=== PATIENT | male | born 1950 | race Caucasian/White ===

== ENCOUNTER 2022-02-02 15:18 | Observation (INO) | payer OTHER ==
[2022-02-02] MEDS ORDERED: METOCLOPRAMIDE HCL INJECTION 10 MG/2 ML VIAL IVPB ONE (16:26)
[2022-02-02] MEDS ORDERED: LACTATED RINGERS SOLUTION 1000 ML INFUS.BAG IV ONE (16:26)
[2022-02-02] MEDS ORDERED: ACETAMINOPHEN 1000 MG/100 ML BAG IVPB ONE (16:26)
[2022-02-02] MEDS ORDERED: ACETAMINOPHEN INJECTION 100 ML IVPB ONE (16:30)
[2022-02-02] MEDS ORDERED: METOCLOPRAMIDE HCL INJECTION 10 MG/2 ML VIAL ONE (16:30)
[2022-02-02 17:01] LABS: BASO % 0.9 % (0-2.0); EOS % 1.1 % (0-4.5); HEMATOCRIT 44.1 % (35.4-49); HEMOGLOBIN 15.4 GM/dL (11.7-16.9); LYMPH % 22.6 % (8-40); MCH 31.5 pg (25.7-33.7); MCHC 34.8 g/dl (32.0-35.9); MEAN CELL VOLUME 90.6 fl (80-96); MEAN PLT VOLUME 7.4 fl (7.5-11.1); MONO % 4.8 % (3.8-10.2); NEUT % 70.6 % (42.8-82.8); PLATELET COUNT 171 10^3/uL (134-434); RBC 4.87 M/mm3 (4.00-5.60); RDW 13.1 % (11.9-15.9)
[2022-02-02 17:15] LABS: CALCIUM 9.4 mg/dL (8.5-10.1)
[2022-02-02 17:16] LABS: ALBUMIN 3.8 g/dl (3.4-5.0); BLOOD UREA NITROGEN 13.9 mg/dL (7-18); MAGNESIUM 2.1 mg/dL (1.8-2.4)
[2022-02-02 17:19] LABS: CREATININE 0.7 mg/dL (0.55-1.3)
[2022-02-02 17:20] LABS: BILIRUBIN,TOTAL 0.7 mg/dL (0.2-1); TOT PROT 7.4 g/dl (6.4-8.2)
[2022-02-02] MEDS ORDERED: MECLIZINE HCL 25 MG TABLET (FP) PO ONE (18:39)
[2022-02-02] MEDS ORDERED: MECLIZINE HCL 25 MG TABLET (FP) ONE (18:49)
[2022-02-02] MEDS ORDERED: ONDANSETRON 4 MG/2 ML VIAL ONE (20:44)
[2022-02-02] MEDS ORDERED: ONDANSETRON 4 MG/2 ML VIAL IVPUSH ONE (21:01)
[2022-02-02] MEDS ORDERED: ACETAMINOPHEN 325 MG TABLET (FP) PO PRN (21:41)
[2022-02-02] MEDS ORDERED: POLYETHYLENE GLYCOL (HEALTHYLAX) 3350 17 GM PACKET PO PRN (21:41)
[2022-02-02] MEDS ORDERED: ATORVASTATIN CA 40 MG TABLET (FP) ONE (23:27)
[2022-02-02] MEDS: ATORVASTATIN CA 40 MG TABLET (FP) PO SCH (23:28)
[2022-02-03 01:57] VITALS: BMI 33.4
[2022-02-03 07:10] LABS: BASO % 0.6 % (0-2.0); EOS % 1.5 % (0-4.5); HEMATOCRIT 43.1 % (35.4-49); HEMOGLOBIN 14.7 GM/dL (11.7-16.9); LYMPH % 27.2 % (8-40); MCH 31.3 pg (25.7-33.7); MCHC 34.1 g/dl (32.0-35.9); MEAN CELL VOLUME 91.8 fl (80-96); MEAN PLT VOLUME 7.7 fl (7.5-11.1); MONO % 7.6 % (3.8-10.2); NEUT % 63.1 % (42.8-82.8); PLATELET COUNT 159 10^3/uL (134-434); RBC 4.69 M/mm3 (4.00-5.60); RDW 12.9 % (11.9-15.9); WHITE BLOOD COUNT 10.8 K/mm3 (4.0-10.0)
[2022-02-03 07:29] LABS: CALCIUM 8.8 mg/dL (8.5-10.1)
[2022-02-03 07:30] LABS: BLOOD UREA NITROGEN 12.5 mg/dL (7-18)
[2022-02-03 07:33] LABS: CREATININE 0.6 mg/dL (0.55-1.3)
[2022-02-03] MEDS: ENOXAPARIN NA (PORCINE) 40 MG/0.4 ML DISP.SYRIN SQ SCH (10:04)
[2022-02-03] MEDS ORDERED: PATIENT'S OWN MEDICATION (NON-FORMULARY) (Cetirizine Hcl [Zyrtec] 10 MG Tablet) PO PRN (21:24)
[2022-02-03] MEDS ORDERED: MOXIFLOXACIN HCL OS SCH (22:00)
[2022-02-03] MEDS ORDERED: [UNRECOGNIZED DRUG - OTHER] OS SCH (22:00)
[2022-02-03] MEDS ORDERED: EYE OS SCH (22:00)
[2022-02-03] MEDS ORDERED: PATIENT'S OWN MEDICATION (NON-FORMULARY) (Prednisolone 1% Ophthalmic [Pred Forte 1% -] 1 D OS SCH (22:00)
[2022-02-03] MEDS ORDERED: KETOROLAC 0.5% OS SCH (22:00)
[2022-02-03] MEDS: LORATADINE 10 MG TABLET PO SCH (22:01)
[2022-02-03] MEDS: ATORVASTATIN CA 40 MG TABLET (FP) PO SCH (22:02)
[2022-02-04] MEDS: ENOXAPARIN NA (PORCINE) 40 MG/0.4 ML DISP.SYRIN SQ SCH (10:07)
[2022-02-04] MEDS: LORATADINE 10 MG TABLET PO SCH (10:09)
[2022-02-04 11:28] LABS: BASO % 0.9 % (0-2.0); HEMATOCRIT 42.5 % (35.4-49); HEMOGLOBIN 14.4 GM/dL (11.7-16.9); MCH 31.1 pg (25.7-33.7); MEAN CELL VOLUME 91.6 fl (80-96); MEAN PLT VOLUME 7.4 fl (7.5-11.1); MONO % 9.4 % (3.8-10.2); NEUT % 53.7 % (42.8-82.8); PLATELET COUNT 158 10^3/uL (134-434); RBC 4.64 M/mm3 (4.00-5.60); RDW 12.9 % (11.9-15.9); WHITE BLOOD COUNT 8.1 K/mm3 (4.0-10.0)
[2022-02-04 14:40] VITALS: BP 147/78; PULSE 67; TEMP 98.5
== END 2022-02-04 17:57 | disposition home or self-care (01) ==
LOC: JER 15:18 → JERBED 21:02 → J4W 02-03 01:30
PROVIDERS: ADMIT Hospitalist; ATTEND Family Medicine
PROC: 3E033NZ Introduction of Analgesics, Hypnotics, Sedatives into Peripheral Vein, Percutaneous Approach (ICD-10-PCS; principal; 2022-02-02)
PROC: 3E023GC Introduction of Other Therapeutic Substance into Muscle, Percutaneous Approach (ICD-10-PCS; 2022-02-02)
PROC: 3E0337Z Introduction of Electrolytic and Water Balance Substance into Peripheral Vein, Percutaneous Approach (ICD-10-PCS; 2022-02-02)
PROC: 3E033GC Introduction of Other Therapeutic Substance into Peripheral Vein, Percutaneous Approach (ICD-10-PCS; 2022-02-02)
DX: H83.09 Labyrinthitis, unspecified ear (principal); R42 Dizziness and giddiness; E66.9 Obesity, unspecified; Z68.33 Body mass index [BMI] 33.0-33.9, adult; I10 Essential (primary) hypertension; Z87.898 Personal history of other specified conditions; Z86.79 Personal history of other diseases of the circulatory system
CPT/HCPCS: 36415; 70450-TC; 70551-TC; 71046-TC-FY; 80048; 80053; 82962; 83735; 84443; 84484; 85025; 93005; 93010; 93306-TC; 96372; 96374; 96375; 99285-25; C9803-CS; G0378; U0003; U0005